=== PATIENT | female | born 1940 | race Caucasian/White ===

== ENCOUNTER 2020-05-31 12:28 | Inpatient (IN) ==
[2020-05-31 13:18] LABS: BUN/Creatinine Ratio 15 (6-26); Blood Urea Nitrogen 12 mg/dL (8-23); Calcium 8.8 mg/dL (8.6-10.3); Carbon Dioxide 24 mEq/L (23-29); Chloride 98 mEq/L (98-107); Glucose 210 mg/dL (70-105); Osmolality,Calculated 282 (280-300); Potassium 3.3 mEq/L (3.5-5.1); Sodium 133 mEq/L (136-145); Troponin I < 0.03 ng/mL (< 0.04); eGFR For African Americans > 60 (> 60); eGFR For Non-African Americans > 60 (> 60)
[2020-05-31 14:10] LABS: Basophils % 0.2 %; Eosinophils % 0.2 %; Hematocrit 40.1 % (35.3-44.9); Immature Granulocytes % 0.5 % (0-4); Lymphocytes # 1.1 K/mcL (0.6-4.6); Lymphocytes % 8.2 %; Mean Corpuscular HGB Conc 31.4 g/dL (31.6-35.5); Mean Corpuscular Hemoglobin 28.6 pg (28.0-33.3); Mean Corpuscular Volume 91.1 fL (83.0-100.0); Mean Platelet Volume 11.3 fL (9.4-12.4); Monocytes # 0.9 K/mcL (0.0-1.3); Monocytes % 6.9 %; Neutrophils # 10.8 K/mcL (1.6-8.9); Platelet Count 194 K/mcL (140-400); Red Cell Distribution Width 11.9 % (11.5-14.5)
[2020-05-31 14:30] LABS: White Blood Count 12.8 K/mcL (4.3-11.1)
[2020-05-31 14:31] LABS: Hemoglobin 12.6 g/dL (11.5-15.4)
[2020-05-31] MEDS ORDERED: Nitroglycerin 0.4 MG TAB.SUBL SL STA (15:10)
[2020-05-31] MEDS ORDERED: Furosemide 40 MG/4 ML VIAL IVP ONE (15:10)
[2020-05-31] MEDS ORDERED: cefTRIAXone 1,000 MG in Water for inj. (sterile) 10 ML IVP ONE (15:27)
[2020-05-31] MEDS ORDERED: Azithromycin 500 MG in D5% in Water 250 ML IVPB ONE (15:27)
[2020-05-31] MEDS ORDERED: Naloxone 0.4 MG/ML INJ IVP PRN (16:56)
[2020-05-31] MEDS ORDERED: Potassium Chloride Elixir 20 MEQ/15 ML UDC PO ONE (18:20)
[2020-05-31] MEDS ORDERED: Perflutren Lipid Microsphere 1.3 ML in 0.9 % Sodium Chloride 8.7 ML IVP PRN (18:37)
[2020-05-31] MEDS ORDERED: Ondansetron 4 MG/2 ML VIAL IVP PRN (18:57)
[2020-05-31] MEDS: *HR* Heparin 5,000 UNIT/ML VIAL SQ SCH (21:25)
[2020-06-01 01:16] LABS: Basophils % 0.2 %; Hematocrit 40.6 % (35.3-44.9); Hemoglobin 13.1 g/dL (11.5-15.4); Immature Granulocytes % 0.3 % (0-4); Lymphocytes # 1.4 K/mcL (0.6-4.6); Lymphocytes % 12.9 %; Mean Corpuscular HGB Conc 32.3 g/dL (31.6-35.5); Mean Corpuscular Hemoglobin 29.8 pg (28.0-33.3); Mean Corpuscular Volume 92.3 fL (83.0-100.0); Mean Platelet Volume 11.8 fL (9.4-12.4); Monocytes # 0.7 K/mcL (0.0-1.3); Monocytes % 6.5 %; Neutrophils # 8.5 K/mcL (1.6-8.9); Platelet Count 216 K/mcL (140-400); Red Cell Distribution Width 11.9 % (11.5-14.5); Segmented Neutrophils % 80.1 %; White Blood Count 10.7 K/mcL (4.3-11.1)
[2020-06-01] MEDS: *HR* Heparin 5,000 UNIT/ML VIAL SQ SCH (05:16)
[2020-06-01] MEDS ORDERED: GI Cocktail 40 ML EACH PO ONE (06:08)
[2020-06-01] MEDS ORDERED: Nitroglycerin 0.4 MG TAB.SUBL SL ONE (06:09)
[2020-06-01] MEDS: *HR* Metoprolol 5 MG/5 ML VIAL IVP PRN ×2 (06:17→06:34)
[2020-06-01] MEDS ORDERED: Pantoprazole 40 MG VIAL IVP ONE (06:33)
[2020-06-01] MEDS: Furosemide 20 MG/2 ML VIAL IVP SCH (07:34)
[2020-06-01] MEDS: DilTIAZem 50 MG/50 ML IV.SOLN IVC SCH ×2 (07:34→11:24)
[2020-06-01] MEDS: 0.9 % Sodium Chloride 1,000 ML IV SCH (08:13)
[2020-06-01] MEDS ORDERED: *HR* Heparin 5,000 UNIT/ML VIAL IVP ONE (08:33)
[2020-06-01] MEDS ORDERED: *HR* Heparin 5,000 UNIT/ML VIAL IVP PRN ×2 (08:33)
[2020-06-01 08:39] LABS: Troponin I 0.03 ng/mL (< 0.04)
[2020-06-01 08:58] LABS: Hematocrit 39.6 % (35.3-44.9); Hemoglobin 12.8 g/dL (11.5-15.4); Mean Corpuscular HGB Conc 32.3 g/dL (31.6-35.5); Mean Corpuscular Hemoglobin 29.1 pg (28.0-33.3); Mean Platelet Volume 12.2 fL (9.4-12.4); Platelet Count 225 K/mcL (140-400); Red Cell Distribution Width 11.9 % (11.5-14.5); White Blood Count 13.7 K/mcL (4.3-11.1)
[2020-06-01 09:19] LABS: Heparin anti-factor XA UFH 0.05 IU/mL (0.30-0.70)
[2020-06-01 09:20] LABS: INR 1.1; Prothrombin Time 12.2 Seconds (9.4-12.1)
[2020-06-01 09:22] LABS: BUN/Creatinine Ratio 16 (6-26); Blood Urea Nitrogen 12 mg/dL (8-23); Calcium 8.7 mg/dL (8.6-10.3); Carbon Dioxide 24 mEq/L (23-29); Chloride 95 mEq/L (98-107); Glucose 152 mg/dL (70-105); Osmolality,Calculated 271 (280-300); Potassium 3.5 mEq/L (3.5-5.1); Sodium 129 mEq/L (136-145); eGFR For African Americans > 60 (> 60); eGFR For Non-African Americans > 60 (> 60)
[2020-06-01] MEDS: Heparin 25,000UNIT/250ML 1/2NS 25,000 UNIT/250 ML IV.SOLN IVC SCH (10:23)
[2020-06-01] MEDS: DilTIAZem CD (24hr) 120 MG CAP.ER.24H PO SCH (11:24)
[2020-06-01] MEDS: cefTRIAXone 1,000 MG in 0.9 % Sodium Chloride Mini Bag 100 ML IVPB SCH (16:05)
[2020-06-01] MEDS: Azithromycin 500 MG in 0.9 % Sodium Chloride 250 ML IVPB SCH (16:40)
[2020-06-02] MEDS: *HR* Metoprolol 5 MG/5 ML VIAL IVP PRN (02:36)
[2020-06-02] MEDS: Furosemide 20 MG/2 ML VIAL IVP SCH (07:26)
[2020-06-02] MEDS: DilTIAZem CD (24hr) 120 MG CAP.ER.24H PO SCH (07:26)
[2020-06-02 08:32] LABS: Basophils # 0.1 K/mcL (0.0-0.2); Basophils % 0.5 %; Eosinophils # 0.1 K/mcL (0.0-0.6); Eosinophils % 0.6 %; Hematocrit 37.7 % (35.3-44.9); Hemoglobin 12.3 g/dL (11.5-15.4); Immature Granulocytes % 0.4 % (0-4); Lymphocytes # 1.6 K/mcL (0.6-4.6); Lymphocytes % 15.9 %; Mean Corpuscular HGB Conc 32.6 g/dL (31.6-35.5); Mean Corpuscular Hemoglobin 29.3 pg (28.0-33.3); Mean Corpuscular Volume 89.8 fL (83.0-100.0); Mean Platelet Volume 11.6 fL (9.4-12.4); Monocytes % 10.2 %; Neutrophils # 7.4 K/mcL (1.6-8.9); Platelet Count 233 K/mcL (140-400); Segmented Neutrophils % 72.4 %; White Blood Count 10.2 K/mcL (4.3-11.1)
[2020-06-02 08:51] LABS: BUN/Creatinine Ratio 15 (6-26); Blood Urea Nitrogen 10 mg/dL (8-23); Calcium 8.4 mg/dL (8.6-10.3); Carbon Dioxide 27 mEq/L (23-29); Chloride 94 mEq/L (98-107); Glucose 161 mg/dL (70-105); Osmolality,Calculated 273 (280-300); Potassium 3.1 mEq/L (3.5-5.1); Sodium 130 mEq/L (136-145); eGFR For African Americans > 60 (> 60); eGFR For Non-African Americans > 60 (> 60)
[2020-06-02] MEDS ORDERED: *HR* LORazepam 2 MG/ML VIAL IVP ONE (13:25)
[2020-06-02] MEDS: Heparin 25,000UNIT/250ML 1/2NS 25,000 UNIT/250 ML IV.SOLN IVC SCH (13:30)
[2020-06-02] MEDS: 0.9 % Sodium Chloride 1,000 ML IV SCH (13:30)
[2020-06-02] MEDS: Apixaban 5 MG TABLET PO SCH ×2 (13:41→20:46)
[2020-06-02] MEDS: Azithromycin 500 MG in 0.9 % Sodium Chloride 250 ML IVPB SCH (15:54)
[2020-06-02] MEDS: cefTRIAXone 1,000 MG in 0.9 % Sodium Chloride Mini Bag 100 ML IVPB SCH (15:54)
[2020-06-03 01:23] LABS: Basophils % 0.3 %; Eosinophils # 0.1 K/mcL (0.0-0.6); Eosinophils % 0.8 %; Hematocrit 33.9 % (35.3-44.9); Hemoglobin 11.2 g/dL (11.5-15.4); Immature Granulocytes % 0.5 % (0-4); Lymphocytes # 1.8 K/mcL (0.6-4.6); Lymphocytes % 17.9 %; Mean Corpuscular Hemoglobin 29.8 pg (28.0-33.3); Mean Corpuscular Volume 90.2 fL (83.0-100.0); Mean Platelet Volume 11.3 fL (9.4-12.4); Monocytes # 1.3 K/mcL (0.0-1.3); Monocytes % 12.5 %; Neutrophils # 6.9 K/mcL (1.6-8.9); Platelet Count 198 K/mcL (140-400); Red Blood Count 3.76 M/mcL (3.82-4.97); White Blood Count 10.2 K/mcL (4.3-11.1)
[2020-06-03 01:44] LABS: BUN/Creatinine Ratio 21 (6-26); Blood Urea Nitrogen 11 mg/dL (8-23); Calcium 8.2 mg/dL (8.6-10.3); Carbon Dioxide 27 mEq/L (23-29); Chloride 94 mEq/L (98-107); Glucose 125 mg/dL (70-105); Osmolality,Calculated 271 (280-300); Sodium 130 mEq/L (136-145); eGFR For African Americans > 60 (> 60); eGFR For Non-African Americans > 60 (> 60)
[2020-06-03] MEDS: *HR* Metoprolol 5 MG/5 ML VIAL IVP PRN ×2 (07:13→21:17)
[2020-06-03] MEDS: Furosemide 20 MG/2 ML VIAL IVP SCH (08:21)
[2020-06-03] MEDS: Apixaban 5 MG TABLET PO SCH ×2 (08:21→20:42)
[2020-06-03] MEDS: DilTIAZem CD (24hr) 180 MG CAP.ER.24H PO SCH (08:25)
[2020-06-03] MEDS ORDERED: Acetaminophen 325 MG TABLET PO PRN (15:56)
[2020-06-03] MEDS: cefTRIAXone 1,000 MG in 0.9 % Sodium Chloride Mini Bag 100 ML IVPB SCH (16:05)
[2020-06-03] MEDS: Azithromycin 500 MG in 0.9 % Sodium Chloride 250 ML IVPB SCH (17:28)
[2020-06-04] MEDS ORDERED: Albuterol 2.5 MG/3 ML NEBULIZER IH PRN (00:25)
[2020-06-04 02:18] LABS: Basophils % 0.2 %; Eosinophils # 0.1 K/mcL (0.0-0.6); Eosinophils % 0.4 %; Hematocrit 33.5 % (35.3-44.9); Immature Granulocytes % 0.6 % (0-4); Lymphocytes # 1.1 K/mcL (0.6-4.6); Lymphocytes % 9.1 %; Mean Corpuscular HGB Conc 32.8 g/dL (31.6-35.5); Mean Corpuscular Hemoglobin 29.3 pg (28.0-33.3); Mean Corpuscular Volume 89.3 fL (83.0-100.0); Mean Platelet Volume 11.5 fL (9.4-12.4); Monocytes # 1.2 K/mcL (0.0-1.3); Monocytes % 9.3 %; Neutrophils # 9.9 K/mcL (1.6-8.9); Platelet Count 210 K/mcL (140-400); Red Blood Count 3.75 M/mcL (3.82-4.97); Red Cell Distribution Width 11.9 % (11.5-14.5); Segmented Neutrophils % 80.4 %; White Blood Count 12.4 K/mcL (4.3-11.1)
[2020-06-04 02:40] LABS: BUN/Creatinine Ratio 18 (6-26); Blood Urea Nitrogen 9 mg/dL (8-23); Calcium 8.3 mg/dL (8.6-10.3); Carbon Dioxide 30 mEq/L (23-29); Chloride 90 mEq/L (98-107); Glucose 149 mg/dL (70-105); Osmolality,Calculated 265 (280-300); Potassium 3.1 mEq/L (3.5-5.1); Sodium 127 mEq/L (136-145); eGFR For African Americans > 60 (> 60); eGFR For Non-African Americans > 60 (> 60)
[2020-06-04] MEDS ORDERED: Isovue-370 500 ML BOTTLE IVP ONE (08:05)
[2020-06-04] MEDS: Cholecalciferol (D-3) 1,000 UNIT (25MCG) TABLET PO SCH (08:44)
[2020-06-04] MEDS: Aspirin Enteric Coated 81 MG Tablet PO SCH (08:44)
[2020-06-04] MEDS: Apixaban 5 MG TABLET PO SCH ×2 (08:44→19:59)
[2020-06-04] MEDS: Furosemide 20 MG/2 ML VIAL IVP SCH (08:45)
[2020-06-04] MEDS: Metoprolol XL (24 HR) Succ 50 MG TAB.ER.24H PO SCH (08:45)
[2020-06-04] MEDS: DilTIAZem CD (24hr) 180 MG CAP.ER.24H PO SCH (08:51)
[2020-06-04] MEDS ORDERED: Potassium Chloride Elixir 20 MEQ/15 ML UDC PO ONE (08:58)
[2020-06-04] MEDS ORDERED: cefTRIAXone 2,000 MG in 0.9 % Sodium Chloride Mini Bag 100 ML IVPB SCH (09:00)
[2020-06-04] MEDS ORDERED: Furosemide 20 MG/2 ML VIAL IVP ONE (10:17)
[2020-06-04 12:44] LABS: Adenovirus Not Detected (Not Detect); Bordetella Pertussis Not Detected (Not Detect); Chlamydophila pneumoniae Not Detected (Not Detect); Coronavirus 229E Not Detected (Not Detect); Coronavirus HKU1 Not Detected (Not Detect); Coronavirus NL63 Not Detected (Not Detect); Coronavirus OC43 Not Detected (Not Detect); Human Metapneumovirus Not Detected (Not Detect); Human Rhinovirus/Enterovirus Not Detected (Not Detect); Influenza A Subtype 2009 H1 Not Detected (Not Detect); Influenza B Not Detected (Not Detect); Mycoplasma pneumoniae Not Detected (Not Detect); Parainfluenza Virus 1 Not Detected (Not Detect); Parainfluenza Virus 2 Not Detected (Not Detect); Parainfluenza Virus 3 Not Detected (Not Detect); Parainfluenza Virus 4 Not Detected (Not Detect); Respiratory Syncytial Virus Not Detected (Not Detect); SARS-CoV-2 Not Detected (Not Detect)
[2020-06-04] MEDS: DilTIAZem SR (12hr) 90 MG CAP.ER.12H PO SCH ×2 (13:16→19:59)
[2020-06-04] MEDS: Furosemide 40 MG/4 ML VIAL IVP SCH (17:30)
[2020-06-04] MEDS ORDERED: DilTIAZem SR (12hr) 90 MG CAP.ER.12H PO SCH (21:00)
[2020-06-05] MEDS: *HR* Metoprolol 5 MG/5 ML VIAL IVP PRN (01:22)
[2020-06-05 04:52] LABS: Basophils % 0.2 %; Eosinophils # 0.2 K/mcL (0.0-0.6); Eosinophils % 1.2 %; Hematocrit 36.3 % (35.3-44.9); Hemoglobin 11.9 g/dL (11.5-15.4); Immature Granulocytes % 0.4 % (0-4); Lymphocytes # 1.3 K/mcL (0.6-4.6); Lymphocytes % 9.7 %; Mean Corpuscular HGB Conc 32.8 g/dL (31.6-35.5); Mean Corpuscular Hemoglobin 29.2 pg (28.0-33.3); Monocytes # 1.4 K/mcL (0.0-1.3); Monocytes % 10.3 %; Neutrophils # 10.8 K/mcL (1.6-8.9); Platelet Count 254 K/mcL (140-400); Red Blood Count 4.08 M/mcL (3.82-4.97); Red Cell Distribution Width 11.9 % (11.5-14.5); Segmented Neutrophils % 78.2 %; White Blood Count 13.9 K/mcL (4.3-11.1)
[2020-06-05 05:10] LABS: BUN/Creatinine Ratio 18 (6-26); Blood Urea Nitrogen 10 mg/dL (8-23); Calcium 8.6 mg/dL (8.6-10.3); Carbon Dioxide 35 mEq/L (23-29); Chloride 87 mEq/L (98-107); Glucose 147 mg/dL (70-105); Magnesium 2.4 mg/dL (1.6-2.6); Osmolality,Calculated 268 (280-300); Potassium 3.5 mEq/L (3.5-5.1); Sodium 128 mEq/L (136-145); eGFR For African Americans > 60 (> 60); eGFR For Non-African Americans > 60 (> 60)
[2020-06-05] MEDS: Furosemide 40 MG/4 ML VIAL IVP SCH ×2 (08:10→17:03)
[2020-06-05] MEDS: Cholecalciferol (D-3) 1,000 UNIT (25MCG) TABLET PO SCH (08:11)
[2020-06-05] MEDS: DilTIAZem SR (12hr) 90 MG CAP.ER.12H PO SCH ×2 (08:11→20:33)
[2020-06-05] MEDS: Metoprolol XL (24 HR) Succ 50 MG TAB.ER.24H PO SCH (08:11)
[2020-06-05] MEDS: Aspirin Enteric Coated 81 MG Tablet PO SCH (08:11)
[2020-06-05] MEDS: Apixaban 5 MG TABLET PO SCH ×2 (08:11→20:33)
[2020-06-05 15:44] LABS: Glucose,Pleural Fluid 172 mg/dL (No Ref Range); LDH,Pleural Fluid 74 Units/L (No Ref Range); Total Protein,Pleural Fluid < 2.0 g/dL
[2020-06-05 16:29] LABS: RBC,Pleural Fluid < 2000 RBC/mcL
[2020-06-05 17:43] LABS: Appearance of Pleural Fl Clear (Clear); Basophils,Pleural Fluid 0 %; Eosinophils,Pleural Fluid 0 %
[2020-06-06 01:26] LABS: Hematocrit 33.4 % (35.3-44.9); Hemoglobin 11.1 g/dL (11.5-15.4); Mean Corpuscular HGB Conc 33.2 g/dL (31.6-35.5); Mean Corpuscular Hemoglobin 29.3 pg (28.0-33.3); Mean Corpuscular Volume 88.1 fL (83.0-100.0); Mean Platelet Volume 10.4 fL (9.4-12.4); Platelet Count 284 K/mcL (140-400); Red Blood Count 3.79 M/mcL (3.82-4.97); Red Cell Distribution Width 11.9 % (11.5-14.5); White Blood Count 12.6 K/mcL (4.3-11.1)
[2020-06-06 01:46] LABS: BUN/Creatinine Ratio 20 (6-26); Blood Urea Nitrogen 12 mg/dL (8-23); Calcium 8.3 mg/dL (8.6-10.3); Carbon Dioxide 36 mEq/L (23-29); Chloride 84 mEq/L (98-107); Glucose 144 mg/dL (70-105); Osmolality,Calculated 264 (280-300); Sodium 126 mEq/L (136-145); eGFR For African Americans > 60 (> 60); eGFR For Non-African Americans > 60 (> 60)
[2020-06-06] MEDS: Metoprolol XL (24 HR) Succ 50 MG TAB.ER.24H PO SCH (08:23)
[2020-06-06] MEDS: Apixaban 5 MG TABLET PO SCH ×2 (08:23→21:20)
[2020-06-06] MEDS: DilTIAZem SR (12hr) 90 MG CAP.ER.12H PO SCH ×2 (08:23→21:20)
[2020-06-06] MEDS: Aspirin Enteric Coated 81 MG Tablet PO SCH (08:23)
[2020-06-06] MEDS: Cholecalciferol (D-3) 1,000 UNIT (25MCG) TABLET PO SCH (08:24)
[2020-06-06] MEDS: Furosemide 40 MG/4 ML VIAL IVP SCH ×2 (08:24→15:50)
[2020-06-06 09:48] LABS: Lactate Dehydrogenase 190 Units/L (140-271)
[2020-06-06] MEDS: Potassium Chloride Elixir 20 MEQ/15 ML UDC PO SCH ×2 (09:53→13:32)
[2020-06-06] MEDS ORDERED: Saline Nasal Spray 44 ML BOTTLE NS PRN (09:57)
[2020-06-06] MEDS: Benzonatate 100 MG CAPSULE PO PRN (21:20)
[2020-06-07 02:16] LABS: Hematocrit 33.2 % (35.3-44.9); Hemoglobin 11.1 g/dL (11.5-15.4); Mean Corpuscular HGB Conc 33.4 g/dL (31.6-35.5); Mean Corpuscular Hemoglobin 29.9 pg (28.0-33.3); Mean Corpuscular Volume 89.5 fL (83.0-100.0); Mean Platelet Volume 10.3 fL (9.4-12.4); Platelet Count 302 K/mcL (140-400); Red Blood Count 3.71 M/mcL (3.82-4.97); Red Cell Distribution Width 11.9 % (11.5-14.5); White Blood Count 11.7 K/mcL (4.3-11.1)
[2020-06-07 02:36] LABS: BUN/Creatinine Ratio 20 (6-26); Blood Urea Nitrogen 12 mg/dL (8-23); Calcium 8.4 mg/dL (8.6-10.3); Carbon Dioxide 36 mEq/L (23-29); Chloride 85 mEq/L (98-107); Glucose 136 mg/dL (70-105); Osmolality,Calculated 266 (280-300); Potassium 3.6 mEq/L (3.5-5.1); Sodium 127 mEq/L (136-145); eGFR For African Americans > 60 (> 60); eGFR For Non-African Americans > 60 (> 60)
[2020-06-07] MEDS: Cholecalciferol (D-3) 1,000 UNIT (25MCG) TABLET PO SCH (07:41)
[2020-06-07] MEDS: Metoprolol XL (24 HR) Succ 50 MG TAB.ER.24H PO SCH (07:41)
[2020-06-07] MEDS: DilTIAZem SR (12hr) 90 MG CAP.ER.12H PO SCH ×2 (07:41→21:03)
[2020-06-07] MEDS: Apixaban 5 MG TABLET PO SCH ×2 (07:42→21:02)
[2020-06-07] MEDS: Aspirin Enteric Coated 81 MG Tablet PO SCH (07:42)
[2020-06-07] MEDS: Furosemide 40 MG/4 ML VIAL IVP SCH ×2 (07:42→17:29)
[2020-06-07] MEDS: Benzonatate 100 MG CAPSULE PO PRN (17:29)
[2020-06-08] MEDS ORDERED: *HR* Metoprolol 5 MG/5 ML VIAL IVP ONE (08:14)
[2020-06-08] MEDS: DilTIAZem SR (12hr) 90 MG CAP.ER.12H PO SCH ×2 (08:35→19:35)
[2020-06-08] MEDS: Apixaban 5 MG TABLET PO SCH (08:35)
[2020-06-08] MEDS: Aspirin Enteric Coated 81 MG Tablet PO SCH (08:35)
[2020-06-08] MEDS: Metoprolol XL (24 HR) Succ 50 MG TAB.ER.24H PO SCH (08:35)
[2020-06-08] MEDS: Cholecalciferol (D-3) 1,000 UNIT (25MCG) TABLET PO SCH (08:35)
[2020-06-08] MEDS: Furosemide 40 MG/4 ML VIAL IVP SCH ×2 (08:36→17:15)
[2020-06-08] MEDS ORDERED: Isovue-370 500 ML BOTTLE IVP ONE (09:11)
[2020-06-08 09:13] LABS: Hematocrit 34.6 % (35.3-44.9); Hemoglobin 11.2 g/dL (11.5-15.4); Mean Corpuscular HGB Conc 32.4 g/dL (31.6-35.5); Mean Corpuscular Hemoglobin 28.2 pg (28.0-33.3); Mean Corpuscular Volume 87.2 fL (83.0-100.0); Mean Platelet Volume 10.5 fL (9.4-12.4); Platelet Count 345 K/mcL (140-400); Red Blood Count 3.97 M/mcL (3.82-4.97); Red Cell Distribution Width 11.6 % (11.5-14.5); White Blood Count 10.1 K/mcL (4.3-11.1)
[2020-06-08 09:30] LABS: BUN/Creatinine Ratio 21 (6-26); Blood Urea Nitrogen 10 mg/dL (8-23); Calcium 8.4 mg/dL (8.6-10.3); Carbon Dioxide 36 mEq/L (23-29); Chloride 81 mEq/L (98-107); Glucose 134 mg/dL (70-105); Osmolality,Calculated 259 (280-300); Potassium 2.9 mEq/L (3.5-5.1); Sodium 124 mEq/L (136-145); eGFR For African Americans > 60 (> 60); eGFR For Non-African Americans > 60 (> 60)
[2020-06-08] MEDS ORDERED: Potassium Chloride Elixir 20 MEQ/15 ML UDC PO ONE ×2 (11:00→14:05)
[2020-06-08] MEDS ORDERED: Albumin 25% 25gram/100mL 25 GM/100 ML IV.SOLN IVPB ONE (14:08)
[2020-06-08] MEDS ORDERED: Furosemide 40 MG/4 ML VIAL IVP ONE (14:10)
[2020-06-08 16:43] VITALS: BP 121/72
[2020-06-08 16:44] LABS: Adenovirus Not Detected (Not Detect); Bordetella Pertussis Not Detected (Not Detect); Chlamydophila pneumoniae Not Detected (Not Detect); Coronavirus 229E Not Detected (Not Detect); Coronavirus HKU1 Not Detected (Not Detect); Coronavirus NL63 Not Detected (Not Detect); Coronavirus OC43 Not Detected (Not Detect); Human Metapneumovirus Not Detected (Not Detect); Human Rhinovirus/Enterovirus Not Detected (Not Detect); Influenza A Subtype 2009 H1 Not Detected (Not Detect); Influenza B Not Detected (Not Detect); Mycoplasma pneumoniae Not Detected (Not Detect); Parainfluenza Virus 1 Not Detected (Not Detect); Parainfluenza Virus 2 Not Detected (Not Detect); Parainfluenza Virus 3 Not Detected (Not Detect); Parainfluenza Virus 4 Not Detected (Not Detect); Respiratory Syncytial Virus Not Detected (Not Detect); SARS-CoV-2 Not Detected (Not Detect)
== END 2020-06-08 19:46 | disposition home or self-care (01) | DRG 871 ==
LOC: EMEROOARM 12:28 → 2ANU 12:28
PROVIDERS: ADMIT Internal Medicine; ATTEND Internal Medicine